=== PATIENT | female | born 1985 | race Caucasian/White ===

== ENCOUNTER → 2019-09-01 | Outpatient (CLI) | payer OTHER ==
[~2019-09-01] MED LIST: BENADRYL50 MG; IBREN600 MG PO; NO HOME MEDICATIONS; PERCOCET 325 MG1 TA2 PO; PRENATAL1 TA1
== END ==
LOC: COL.RAD 08-31 12:45
DX: N80.9 Endometriosis, unspecified (principal); F52.5 Vaginismus not due to a substance or known physiological condition

== ENCOUNTER → 2022-01-30 | Outpatient (CLI) | payer OTHER | LOC: COL.RAD 07:02 | DX: R10.11 Right upper quadrant pain (principal) ==

== ENCOUNTER 2022-12-05 21:51 | Emergency (ER) | payer BC ==
[~2022-12-05] VITALS: Ht 160 cm; Wt 63.6 kg
[~2022-12-05 21:51] MED LIST changes: +AMOXICILLIN 8751 TAB PO; +MICONAZOLE 72% VG; +TERCONAZOLE VG
[2022-12-05 21:56] VITALS: TEMP 98.4
[2022-12-05 23:27] VITALS: BP 112/75; PULSE 83
== END 2022-12-05 23:27 | disposition home or self-care (01) ==
LOC: COL.ER 21:51
DX: T63.441A Toxic effect of venom of bees, accidental (unintentional), initial encounter (principal); Z28.310 Unvaccinated for COVID-19
CPT/HCPCS: J1200; J2930; J7030